=== PATIENT | male | born 1940 | race Caucasian/White ===

== ENCOUNTER 2019-01-14 18:47 | Emergency (ER) | payer BC, OTHER ==
[2019-01-14 19:26] VITALS: BP 102/69; PULSE 87; TEMP 97.8; BMI 26.4
--- NOTE | 2019-01-14 19:28 | PDOC ---
Rapid Medical Evaluation Time Seen by Provider: 01/14/19 19:23 Medical Evaluation: Allergies Allergy/AdvReac Type Severity Reaction Status Date / Time No Known Allergies Allergy Verified 12/21/11 16:41 01/14/19 19:24 Pt c/o: choked on veal parmasean, speaking full sentences, s/s resolved upon ED arrival Pt on brief exam: VSS, lcta, speaking full sentences, no erythema to post pharynx Pt ordered for: none Pt to proceed to proceed to the ED Discharge Disposition - Diagnosis Choking episode, Eloped from emergency department - Discharge Dispostion Disposition: ELOPED Condition at time of disposition: Unchanged/Unknown - Referrals - Patient Instructions - Post Discharge Activity
== END 2019-01-14 19:40 | disposition left against medical advice (07) ==
LOC: JERFT 18:47
DX: T17.828A Food in other parts of respiratory tract causing other injury, initial encounter (principal); T17.928A Food in respiratory tract, part unspecified causing other injury, initial encounter; X58.XXXA Exposure to other specified factors, initial encounter; Y93.89 Activity, other specified; Y92.89 Other specified places as the place of occurrence of the external cause; Y99.8 Other external cause status
CPT/HCPCS: 99281-25